=== PATIENT | female | born 1995 | race Caucasian/White ===

== ENCOUNTER 2016-11-09 21:09 | Emergency (ER) | payer OTHER ==
[2016-11-09 21:20] VITALS: BP 120/82
== END 2016-11-09 22:17 | disposition home or self-care (01) ==
LOC: ED 21:09
DX: J02.9 Acute pharyngitis, unspecified (principal); J04.0 Acute laryngitis

== ENCOUNTER 2017-05-10 10:21 | Emergency (ER) | payer OTHER ==
[~2017-05-10] VITALS: Ht 160 cm; Wt 49.9 kg
[2017-05-10 10:24] VITALS: Ht 160 cm; Wt 49.9 kg
[2017-05-10 12:55] VITALS: BP 107/67
== END 2017-05-10 12:55 | disposition home or self-care (01) ==
LOC: ED 10:21
DX: J02.9 Acute pharyngitis, unspecified (principal)

== ENCOUNTER 2017-12-23 08:01 | Emergency (ER) | payer OTHER ==
[~2017-12-23] VITALS: Ht 160 cm; Wt 53.1 kg
[2017-12-23 08:06] VITALS: Ht 160 cm; Wt 53.1 kg
[2017-12-23 09:02] VITALS: BP 98/52
== END 2017-12-23 09:03 | disposition home or self-care (01) ==
LOC: ED 08:01
DX: N39.0 Urinary tract infection, site not specified (principal); G89.29 Other chronic pain; R51 Headache
CPT/HCPCS: J1885; Q0162

== ENCOUNTER 2017-12-24 15:40 | Emergency (ER) | payer OTHER ==
[~2017-12-24] VITALS: Ht 160 cm; Wt 53.5 kg
[2017-12-24 16:39] LABS: BASOPHIL % 0.3 % (0-2); PLATELET COUNT 171 x10^3mcL (130-400); RED CELL DISTRIBUTION WIDTH 12.9 % (11.5-14.5)
[2017-12-24 16:43] LABS: CALCIUM 8.9 mg/dL (8.5-10.1); CARBON DIOXIDE 28.8 mmol/L (21-32); CHLORIDE SERUM 100 mmol/L (98-107); GFR1 > 60 mL/min; GLUCOSE SERUM 112 mg/dL (74-106); POTASSIUM SERUM 3.7 mmol/L (3.5-5.1); SODIUM SERUM 134 mmol/L (136-145)
[2017-12-24 22:34] VITALS: BP 106/66
== END 2017-12-24 22:34 | disposition home or self-care (01) ==
LOC: ED 15:40
PROVIDERS: Emergency Medicine
DX: R10.30 Lower abdominal pain, unspecified (principal); R10.31 Right lower quadrant pain
CPT/HCPCS: J0696; J1885; J3010; J7030; J7050; Q9967